=== PATIENT | male | born 1985 | race Caucasian/White ===

== ENCOUNTER 2023-12-10 20:03 | Emergency (ER) | payer BC ==
[2023-12-10] MEDS: Lidocaine 1% PF 2 ML SDV INJECT STA (20:47)
[2023-12-10] MEDS: cefTRIAXone 1 GM Vial IM STA (20:47)
== END 2023-12-10 21:02 | disposition home or self-care (01) ==
LOC: MW.ED 20:03
DX: L03.116 Cellulitis of left lower limb (principal); Z88.8 Allergy status to other drugs, medicaments and biological substances
CPT/HCPCS: 96372; 99283; J0696; J3490